=== PATIENT | male | born 1955 | race Caucasian/White ===

== ENCOUNTER 2018-06-20 17:27 | Emergency (ER) | payer MEDICARE, OTHER ==
[2018-06-20 18:37] LABS: APPEARANCE,URINE CLOUDY; BILIRUBIN,URINE NEGATIVE (NEGATIVE); CALCIUM OXALATE CRYSTALS,URINE RARE /HPF; COLOR,URINE YELLOW; GLUCOSE, URINE >=500 mg/dL (NEGATIVE); KETONES,URINE NEGATIVE (NEGATIVE); LEUKOCYTE ESTERASE,URINE NEGATIVE (NEGATIVE); NITRITE,URINE NEGATIVE (NEGATIVE); PROTEIN,URINE 30 mg/dL (NEGATIVE); URINE SPECIFIC GRAVITY 1.022; UROBILINOGEN,URINE NEGATIVE mg/dL (<2.0)
--- NOTE | 2018-06-20 20:20 | ER Document Report ---
ED General - General Chief Complaint: Urinary Problem Stated Complaint: BLOOD IN URINE Time Seen by Provider: 06/20/18 18:30 Notes: Patient is a 62-year-old male with a past medical history of hypertension who presents with gross hematuria. States this started several hours prior to arrival is been present with each episode of urination since that time. The patient denies any history of similar symptoms in the past. He denies any abdominal tenderness, flank tenderness, but does note some mild right testicular tenderness. That pain is described as a throbbing, aching, mild, constant pain worsened by touching the testicle. Nothing improves the pain. Denies any trauma to the testicle. No history of nephrolithiasis or bladder cancer. He has not seen his primary care doctor regarding today's concerns. TRAVEL OUTSIDE OF THE [place] IN LAST 30 DAYS: No - Related Data Allergies/Adverse Reactions: No Known Allergies Allergy (Unverified 06/20/18 17:30) Past Medical History - General Information source: Patient - Social History Smoking Status: Never Smoker Chew tobacco use (# tins/day): No Frequency of alcohol use: None Drug Abuse: None Lives with: Spouse/Significant other Family History: Reviewed & Not Pertinent Patient has suicidal ideation: No Patient has homicidal ideation: No - Past Medical History Cardiac Medical History: Reports: Hx Hypertension Endocrine Medical History: Reports: Hx Diabetes Mellitus Type 2 Renal/ Medical History: Denies: Hx Peritoneal Dialysis Past Surgical History: Reports: Hx Orthopedic Surgery - back, neck, L knee Review of Systems - Review of Systems Notes: Constitutional: Negative for fever. HENT: Negative for sore throat. Eyes: Negative for visual changes. Cardiovascular: Negative for chest pain. Respiratory: Negative for shortness of breath. Gastrointestinal: Negative for abdominal pain, vomiting or diarrhea. Genitourinary: Positive for gross hematuria and right testicular pain Musculoskeletal: Negative for back pain. Skin: Negative for rash. Neurological: Negative for headaches, weakness or numbness. 10 point ROS negative except as marked above and in HPI. Physical Exam - Vital signs Vitals: Temp Pulse Resp BP Pulse Ox 99.1 F 76 18 145/66 H 94 06/20/18 17:34 06/20/18 17:34 06/20/18 17:34 06/20/18 17:34 06/20/18 17:34 Interpretation: Hypertensive Notes: PHYSICAL EXAMINATION: GENERAL: Well-appearing, well-nourished and in no acute distress. HEAD: Atraumatic, normocephalic. EYES: Pupils equal round and reactive to light, extraocular movements intact, sclera anicteric, conjunctiva are normal. ENT: nares patent, oropharynx clear without exudates. Moist mucous membranes. NECK: Normal range of motion, supple without lymphadenopathy LUNGS: Breath sounds clear to auscultation bilaterally and equal. No wheezes rales or rhonchi. HEART: Regular rate and rhythm without murmurs ABDOMEN: Soft, nontender, normoactive bowel sounds. No guarding, no rebound. No masses appreciated. No CVA tenderness. : Mild right testicular tenderness to palpation. No abnormal testicular lie. Positive cremasteric reflex bilaterally. No penile lesions or drainage. EXTREMITIES: Normal range of motion, no pitting or edema. No cyanosis. NEUROLOGICAL: No focal neurological deficits. Moves all extremities spontaneously and on command. PSYCH: Normal mood, normal affect. SKIN: Warm, Dry, normal turgor, no rashes or lesions noted. Course - Re-evaluation Re-evalutation: 06/20/18 20:19 Patient presents with a new onset gross hematuria that has been ongoing for the past several hours. He denies any flank pain, abdominal pain but does note some right testicular pain on exam he has no CVA tenderness, no focal abdominal tende rness. No penile lesions, mild tenderness on palpation of the epididymis on the right but normal testicular lie, no discoloration or swelling. Patient will undergo a scrotal ultrasound given the right testicular pain as well as a CT scan of the abdomen pelvis with IV or oral contrast to evaluate for any evidence of a kidney stone, renal mass or possible bladder mass. I informed patient that these studies are normal he will require outpatient follow-up for cystoscopy. 06/20/18 21:57 CT scan does reveal small kidney stones in the bilateral kidneys, again visualizes with the patient states is a known hemangioma in the liver. Awaiting scrotal ultrasound. 06/20/18 22:41 Scrotal ultrasound does show bilateral hydroceles with findings. I have updated the patient on his imaging and laboratory results. I have advised that he follow-up with urology at his earliest ability for cystoscopy as well as evaluation of the bilateral hydroceles particularly on the right. At this time will discharge with return precautions and follow-up recommendations. Verbal discharge instructions given a the bedside and opportunity for questions given. Medication warnings reviewed. Patient is in agreement with this plan and has verbalized understanding of return precautions and the need for primary care f ollow-up in the next 24-72 hours. - Vital Signs Vital signs: Temp Pulse Resp BP Pulse Ox 97.6 F 69 16 138/70 H 100 06/20/18 22:55 06/20/18 22:55 06/20/18 22:55 06/20/18 22:55 06/20/18 22:55 - Laboratory Result Diagrams: 06/20/18 20:43 06/20/18 20:43 Laboratory results interpreted by me: 06/20/18 06/20/18 06/20/18 18:24 20:43 20:43 Hgb 13.2 L RDW 15.3 H Glucose 148 H Calcium 10.6 H Urine Protein 30 H Urine Glucose (UA) >=500 H Urine Blood LARGE H - Diagnostic Test Radiology reviewed: Reports reviewed Discharge - Discharge Clinical Impression: Gross hematuria, Bilateral hydrocele Condition: Good Disposition: HOME, SELF-CARE Additional Instructions: You need to follow-up with urology for a cystoscopy to evaluate for any possib ility of bladder cancer given your gross hematuria. Your CAT scan and ultrasound results are on your paperwork. Please return if you develop worsening testicular pain, persistent vomiting, pass out, develop a fever of greater than 100.4 F, or have any other symptoms that are worrisome to you.
[2018-06-20 20:59] LABS: ABSOLUTE BASOPHILS # (AUTO) 0.1 10^3/uL (0.0-0.2); ABSOLUTE EOSINOPHILS # (AUTO) 0.2 10^3/uL (0.0-0.6); ABSOLUTE LYMPHOCYTES (AUTO) 2.8 10^3/uL (0.5-4.7); ABSOLUTE MONOCYTES (AUTO) 0.7 10^3/uL (0.1-1.4); ABSOLUTE NEUT (AUTO) 6.1 10^3/uL (1.7-8.2); BASOPHILS % (AUTO) 1.1 % (0-2); EOSINOPHILS % (AUTO) 1.6 % (0-6); HEMATOCRIT 37.9 % (37.9-51.0); HEMOGLOBIN 13.2 g/dL (13.5-17.0); LYMPHOCYTES % (AUTO) 28.3 % (13-45); MEAN CORPUSCULAR HEMOGLOBIN 28.2 pg (27.0-33.4); MEAN CORPUSCULAR HGB CONC 34.8 g/dL (32.0-36.0); MEAN CORPUSCULAR VOLUME 81 fl (80-97); MONOCYTES % (AUTO) 6.9 % (3-13); PLATELET COUNT 158 10^3/uL (150-450); RED BLOOD COUNT 4.69 10^6/uL (4.35-5.55); RED CELL DISTRIBUTION WIDTH 15.3 % (11.5-14.0); SEGMENTED NEUTROPHILS % (AUTO) 62.1 % (42-78); TOTAL CELLS COUNTED % (AUTO) 100 %; WHITE BLOOD COUNT 9.8 10^3/uL (4.0-10.5)
--- NOTE | 2018-06-20 21:11 | RADIOLOGY REPORT (SQ) ---
CT ABDOMEN PELVIS WITHOUT IV CONTRAST HISTORY: Gross, new onset hematuria. COMPARISON: None. TECHNIQUE: CT scan of the abdomen and pelvis without IV contrast. This exam was performed according to our departmental dose-optimization program, which includes automated exposure control, adjustment of the mA and/or kV according to patient size and/or use of iterative reconstruction technique. FINDINGS: Please note that the evaluation of the solid and hollow abdominal viscera is limited without IV contrast. There is atelectasis at the left lung base. No pleural or pericardial effusions. There is a large area of hypodensity in the right hepatic lobe which measures 13.3 x 8.7 cm. Small punctate gallstones are seen. No adrenal masses are identified. There are a few bilateral nonobstructing stones in both kidneys with the largest measuring 4 mm in the right kidney. No ureteral or bladder stones are seen. The pelvic organs are unremarkable. No small bowel obstruction. The appendix is unremarkable. The abdominal aorta is normal caliber. The osseous structures are intact. IMPRESSION: 1. A few punctate nonobstructing stones in both kidneys. 2. 13 cm hypodense area in the right hepatic lobe. Recommend contrast enhanced study for complete evaluation. 3. Gallstones.
[2018-06-20 21:14] LABS: ANION GAP 6 (5-19); BLOOD UREA NITROGEN 19 mg/dL (7-20); CALCIUM 10.6 mg/dL (8.4-10.2); CARBON DIOXIDE 28 mmol/L (22-30); CHLORIDE 107 mmol/L (98-107); GLUCOSE 148 mg/dL (75-110); SODIUM 141.4 mmol/L (137-145)
[2018-06-20 21:22] LABS: CHLAM PCR NOT DETECTED (NOT DETECT); GON PCR NOT DETECTED (NOT DETECT)
--- NOTE | 2018-06-20 22:12 | RADIOLOGY REPORT (SQ) ---
US SCROTUM HISTORY: Right testicular pain, hematuria. COMPARISON: None. TECHNIQUE: Gage-scale, color Doppler, and spectral Doppler ultrasound images of the scrotum were obtained. FINDINGS: RIGHT: Normal size and echogenicity of the testis, measuring 3.8 x 2.7 x 3.4 cm. Positive color Doppler flow is present. No focal intratesticular mass is seen. The epididymis also has normal size and echogenicity, and measures 1.3 x 1.1 x 1.5 cm and contains multiple subcentimeter cysts. There is a 6 mm extratesticular calcification. LEFT: Normal size and echogenicity of the testis, measuring 3.9 x 2.3 x 4.2 cm. Positive color Doppler flow is present. No focal intratesticular mass is seen. The epididymis also has normal size and echogenicity, and measures 1.5 x 0.8 x 2.0 cm and contains a 4 mm cyst. OTHER: There are bilateral hydroceles, greater on the right. No varicoceles. No scrotal hernias. IMPRESSION: 1. No testicular torsion. 2. Bilateral hydroceles, with a complex right-sided hydrocele containing internal debris and shadowing calcifications. Findings may represent sequela of prior infection or inflammation.
[2018-06-20 23:04] VITALS: BP 138/70
== END 2018-06-20 23:04 | disposition home or self-care (01) ==
LOC: ER 17:27
DX: R31.0 Gross hematuria (principal); N43.3 Hydrocele, unspecified; N20.0 Calculus of kidney; D18.09 Hemangioma of other sites; N50.811 Right testicular pain; I10 Essential (primary) hypertension; E11.9 Type 2 diabetes mellitus without complications
CPT/HCPCS: 36415; 74176; 76870; 80048; 81001; 85025; 87491; 87591; 93976; 99284

== ENCOUNTER 2018-06-27 10:07 | Emergency (ER) | payer MEDICARE, OTHER ==
[2018-06-27] MEDS ORDERED: OXYCODONE-ACETAMINOPHEN 5-325 MG TABLET PO ONE (10:28)
[2018-06-27] MEDS ORDERED: ONDANSETRON ODT 4 MG TAB (6 TAB/ER DISP) PO PRN (10:28)
--- NOTE | 2018-06-27 10:31 | ER Document Report ---
ED Medical Screen (RME) - General Chief Complaint: Lower Abdominal Pain Stated Complaint: SIDE PAIN Time Seen by Provider: 06/27/18 10:21 Notes: RAPID MEDICAL EVALUATION DISCLOSURE I have seen this patient as part of a Rapid Medical Evaluation and, if applicable, placed any initially appropriate orders. The patient will be seen and fully evaluated, including a full history and physical exam, by a provider (in Main ED or Fast Track) when a room becomes available. 8-year-old male here with complaints of right lower quadrant abdominal pain and continued hematuria. He has had the hematuria for the past 1 week. He was seen here in the ED for the same thing and had a CT abdomen and pelvis that showed some small kidney stones in both kidneys but no ureteral stones. He has tried to make an appointment with a urologist and is now waiting for them to call him back with the date and time. This morning, he started to have the right lower quadrant abdominal pain and this is what brought him into the ED. He has not taken anything for the pain. Pain is worse with movement. Pain is improved with minimizing movement. EXAM CTAB RRR Minimal right upper greater than lower quadrant TTP TRAVEL OUTSIDE OF THE [place] IN LAST 30 DAYS: No - Related Data Allergies/Adverse Reactions: No Known Allergies Allergy (Verified 06/27/18 10:11) Past Medical History - Past Medical History Cardiac Medical History: Reports: Hx Hypertension Endocrine Medical History: Reports: Hx Diabetes Mellitus Type 2 Renal/ Medical History: Denies: Hx Peritoneal Dialysis Past Surgical History: Reports: Hx Orthopedic Surgery - back, neck, L knee Physical Exam - Vital signs Vitals: Temp Pulse Resp BP Pulse Ox 98.1 F 71 18 162/81 H 97 06/27/18 10:16 06/27/18 10:16 06/27/18 10:16 06/27/18 10:16 06/27/18 10:16 Course - Vital Signs Vital signs: Temp Pulse Resp BP Pulse Ox 98.1 F 71 18 162/81 H 97 06/27/18 10:16 06/27/18 10:16 06/27/18 10:16 06/27/18 10:16 06/27/18 10:16
[2018-06-27 11:03] LABS: ABSOLUTE EOSINOPHILS # (AUTO) 0.1 10^3/uL (0.0-0.6); ABSOLUTE LYMPHOCYTES (AUTO) 1.2 10^3/uL (0.5-4.7); ABSOLUTE MONOCYTES (AUTO) 0.5 10^3/uL (0.1-1.4); ABSOLUTE NEUT (AUTO) 7.8 10^3/uL (1.7-8.2); BASOPHILS % (AUTO) 0.3 % (0-2); EOSINOPHILS % (AUTO) 0.7 % (0-6); HEMATOCRIT 38.4 % (37.9-51.0); HEMOGLOBIN 13.2 g/dL (13.5-17.0); LYMPHOCYTES % (AUTO) 12.6 % (13-45); MEAN CORPUSCULAR HEMOGLOBIN 28.1 pg (27.0-33.4); MEAN CORPUSCULAR HGB CONC 34.2 g/dL (32.0-36.0); MEAN CORPUSCULAR VOLUME 82 fl (80-97); MONOCYTES % (AUTO) 4.8 % (3-13); PLATELET COUNT 147 10^3/uL (150-450); RED BLOOD COUNT 4.69 10^6/uL (4.35-5.55); RED CELL DISTRIBUTION WIDTH 15.8 % (11.5-14.0); SEGMENTED NEUTROPHILS % (AUTO) 81.6 % (42-78); TOTAL CELLS COUNTED % (AUTO) 100 %; WHITE BLOOD COUNT 9.5 10^3/uL (4.0-10.5)
[2018-06-27 11:21] LABS: APPEARANCE,URINE CLOUDY; BILIRUBIN,URINE NEGATIVE (NEGATIVE); CALCIUM OXALATE CRYSTALS,URINE RARE /HPF; COLOR,URINE AMBER; GLUCOSE, URINE >=500 mg/dL (NEGATIVE); KETONES,URINE NEGATIVE (NEGATIVE); LEUKOCYTE ESTERASE,URINE TRACE (NEGATIVE); NITRITE,URINE NEGATIVE (NEGATIVE); PROTEIN,URINE 100 mg/dL (NEGATIVE); URINE SPECIFIC GRAVITY 1.016; UROBILINOGEN,URINE NEGATIVE mg/dL (<2.0)
[2018-06-27 11:24] LABS: ALANINE AMINOTRANSFERASE 25 U/L (21-72); ALBUMIN 4.2 g/dL (3.5-5.0); ALKALINE PHOSPHATASE 91 U/L (38-126); ANION GAP 8 (5-19); ASPARTATE AMINO TRANSFERASE 29 U/L (17-59); BILIRUBIN,DIRECT 0.3 mg/dL (0.0-0.4); BILIRUBIN,TOTAL 0.6 mg/dL (0.2-1.3); BLOOD UREA NITROGEN 18 mg/dL (7-20); CALCIUM 10.8 mg/dL (8.4-10.2); CARBON DIOXIDE 29 mmol/L (22-30); CHLORIDE 105 mmol/L (98-107); GLUCOSE 194 mg/dL (75-110); LIPASE 148.4 U/L (23-300); POTASSIUM 4.4 mmol/L (3.6-5.0); SODIUM 141.6 mmol/L (137-145); TOTAL PROTEIN 6.8 g/dL (6.3-8.2)
--- NOTE | 2018-06-27 13:02 | ER Document Report ---
ED General - General Chief Complaint: Lower Abdominal Pain Stated Complaint: SIDE PAIN Time Seen by Provider: 06/27/18 10:21 TRAVEL OUTSIDE OF THE [place] IN LAST 30 DAYS: No - HPI Patient complains to provider of: Hematuria Onset: Other - Right-sided flank pain hematuria has a history of a previously diagnosed nephrolithiasis 1 week prior after being evaluated for hematuria. He notes that the urine that has been having his continue to have blood as well as pain since that time. Nothing is seem to make the pain any better intermittently it does get worse and he has not had any change as far as temperature. Denies any emesis of abdominal pain constipation chills or other symptoms. Has not been able to get in with a urologist yet. - Related Data Allergies/Adverse Reactions: No Known Allergies Allergy (Verified 06/27/18 10:11) Past Medical History - General Information source: Patient - Social History Smoking Status: Never Smoker Chew tobacco use (# tins/day): No Frequency of alcohol use: None Drug Abuse: None Family History: Reviewed & Not Pertinent Patient has suicidal ideation: No Patient has homicidal ideation: No - Past Medical History Cardiac Medical History: Reports: Hx Hypertension Endocrine Medical History: Reports: Hx Diabetes Mellitus Type 2 Renal/ Medical History: Denies: Hx Peritoneal Dialysis Past Surgical History: Reports: Hx Orthopedic Surgery - back, neck, L knee Review of Systems - Review of Systems -: Yes All other systems reviewed and negative Physical Exam - Vital signs Vitals: Temp Pulse Resp BP Pulse Ox 98.1 F 71 18 162/81 H 97 06/27/18 10:16 06/27/18 10:16 06/27/18 10:16 06/27/18 10:16 06/27/18 10:16 Interpretation: Normal - General General appearance: Appears well, Alert - HEENT Head: Normocephalic, Atraumatic Eyes: Normal Pupils: PERRL - Respiratory Respiratory status: No respiratory distress Chest status: Nontender Breath sounds: Normal Chest palpation: Normal - Cardiovascular Rhythm: Regular Heart sounds: Normal auscultation Murmur: No - Abdominal Inspection: Normal Distension: No distension Bowel sounds: Normal Tenderness: Nontender Organomegaly: No organomegaly - Back Back: Normal, Nontender - Extremities General upper extremity: Normal inspection, Nontender, Normal color, Normal ROM, Normal temperature General lower extremity: Normal inspection, Nontender, Normal color, Normal ROM, Normal temperature, Normal weight bearing. No: Sophia's sign - Neurological Neuro grossly intact: Yes Cognition: Normal Orientation: AAOx4 [place] Coma Scale Eye Opening: Spontaneous [place] Coma Scale Verbal: Oriented [place] Coma Scale Motor: Obeys Commands [place] Coma Scale Total: 15 Speech: Normal Motor strength normal: LUE, RUE, LLE, RLE Sensory: Normal - Psychological Associated symptoms: Normal affect, Normal mood - Skin Skin Temperature: Warm Skin Moisture: Dry Skin Color: Normal Course - Re-evaluation Re-evalutation: 06/27/18 18:39 Exceptionally well-appearing 8-year-old man who presents for right-sided flank pain and hematuria in the setting of previously demonstrated nephrolithiasis. Current plan is this patient undergo discharge as he is got hematuria without obvious infection normal renal function and otherwise well-appearing. His abdominal examination is benign in the emergency department. He and his family are comfortable with this plan at this time we will plan for him to undergo discharge with return precautions and encouraged follow-up with urologist as previously instructed. - Vital Signs Vital signs: Temp Pulse Resp BP Pulse Ox 98.1 F 71 18 162/81 H 97 06/27/18 10:16 06/27/18 10:16 06/27/18 10:16 06/27/18 10:16 06/27/18 10:16 - Laboratory Result Diagrams: 06/27/18 10:45 06/27/18 10:45 Laboratory results interpreted by me: 06/27/18 06/27/18 06/27/18 10:45 10:45 10:45 Hgb 13.2 L RDW 15.8 H Plt Count 147 L Seg Neutrophils % 81.6 H Lymphocytes % 12.6 L Glucose 194 H Calcium 10.8 H Urine Protein 100 H Urine Glucose (UA) >=500 H Urine Blood LARGE H Ur Leukocyte Esterase TRACE H Discharge - Discharge Clinical Impression: Nephrolithiasis, Flank pain Condition: Good Disposition: HOME, SELF-CARE Instructions: Oral Narcotic Medication ([facility]), Antinausea Medication ([facility]) Additional Instructions: You were seen today in the emergency department for your flank pain. You had evaluation including a physical exam. It appears that your pain is likely related to a kidney stone. You need to schedule an appointment with your urologist in the coming week. You been given medication to help deal with pain. Continue to take Motrin and Tylenol. Return for worsening fevers, higher than 101 degrees. Return for worsening pain that will not improve despite taking medications. Otherwise follow-up with the urologist at your early convenience. Prescriptions: Hydrocodone/Acetaminophen [Colo 5-325 Tablet] 1 each PO Q8 PRN 3 Days #15 tablet PRN Reason: Tamsulosin HCl [Flomax 0.4 mg Cap.sr] 0.4 mg PO DAILY #7 cap.sr.24h Forms: Elevated Blood Pressure
[2018-06-27 13:30] VITALS: BP 140/75
== END 2018-06-27 13:30 | disposition home or self-care (01) ==
LOC: ER 10:07
DX: N20.0 Calculus of kidney (principal); R10.30 Lower abdominal pain, unspecified; R31.9 Hematuria, unspecified; I10 Essential (primary) hypertension; E11.9 Type 2 diabetes mellitus without complications
CPT/HCPCS: 99284; 36415; 83690; 85025; 80053; 81001; A9270

== ENCOUNTER 2019-02-09 18:35 | Observation (INO) | payer MEDICARE, OTHER ==
[2019-02-09] MEDS ORDERED: ASPIRIN 81 MG TABLET, CHEWABLE PO ONE (19:14)
--- NOTE | 2019-02-09 19:16 | ER Document Report ---
ED Medical Screen (RME) - General Chief Complaint: Chest Pain Stated Complaint: CHEST PAIN Time Seen by Provider: 02/09/19 19:13 Mode of Arrival: Ambulatory Information source: Patient Notes: 63-year-old male presented to ED for complaint of chest tightness squeezing and intermittent substernal pain with shortness of breath since morning time. He is alert oriented respirations regular and unlabored speaking in full sentences walks with even steady gait. He does have a history of high blood pressure cholesterol sleep apnea and diabetes type 2. He is a retired does not smoke drink or do any drugs. I have greeted and performed a rapid initial assessment of this patient. A comprehensive ED assessment and evaluation of the patient, analysis of test results and completion of medical decision making process will be conducted by an additional ED providers. TRAVEL OUTSIDE OF THE [place] IN LAST 30 DAYS: No - Related Data Allergies/Adverse Reactions: No Known Allergies Allergy (Verified 02/09/19 18:36) Past Medical History - Past Medical History Cardiac Medical History: Reports: Hx Hypertension Endocrine Medical History: Reports: Hx Diabetes Mellitus Type 2 Renal/ Medical History: Denies: Hx Peritoneal Dialysis Past Surgical History: Reports: Hx Orthopedic Surgery - back, neck, L knee Physical Exam - Vital signs Vitals: Temp Pulse Resp BP Pulse Ox 98.0 F 73 16 149/74 H 95 02/09/19 18:54 02/09/19 18:54 02/09/19 18:54 02/09/19 18:54 02/09/19 18:54 Course - Vital Signs Vital signs: Temp Pulse Resp BP Pulse Ox 98.0 F 73 16 149/74 H 95 02/09/19 18:54 02/09/19 18:54 02/09/19 18:54 02/09/19 18:54 02/09/19 18:54
--- NOTE | 2019-02-09 19:34 | RADIOLOGY REPORT (SQ) ---
EXAM DESCRIPTION: CHEST 2 VIEWS COMPLETED DATE/TIME: 02/09/2019 7:24 pm REASON FOR STUDY: chest pain COMPARISON: None. EXAM PARAMETERS: NUMBER OF VIEWS: two views TECHNIQUE: Digital Frontal and Lateral radiographic views of the chest acquired. RADIATION DOSE: NA LIMITATIONS: none FINDINGS: LUNGS AND PLEURA: No pneumothorax. Minimal left basilar subsegmental atelectasis. No con solidation or pleural effusion. MEDIASTINUM AND HILAR STRUCTURES: No masses or contour abnormalities. HEART AND VASCULAR STRUCTURES: Heart normal size. No evidence for failure. BONES: No acute findings. HARDWARE: None in the chest. OTHER: No other significant finding. IMPRESSION: Minimal left basilar subsegmental atelectasis. No consolidation or pleural effusion. TECHNICAL DOCUMENTATION: JOB ID: [id number] 2010 [employer]- All Rights Reserved Reading location - IP/workstation name: [email or web address]
[2019-02-09 19:57] LABS: ABSOLUTE BASOPHILS # (AUTO) 0.1 10^3/uL (0.0-0.2); ABSOLUTE EOSINOPHILS # (AUTO) 0.2 10^3/uL (0.0-0.6); ABSOLUTE LYMPHOCYTES (AUTO) 2.8 10^3/uL (0.5-4.7); ABSOLUTE MONOCYTES (AUTO) 0.7 10^3/uL (0.1-1.4); ABSOLUTE NEUT (AUTO) 5.3 10^3/uL (1.7-8.2); BASOPHILS % (AUTO) 0.6 % (0-2); HEMATOCRIT 37.8 % (37.9-51.0); HEMOGLOBIN 12.6 g/dL (13.5-17.0); LYMPHOCYTES % (AUTO) 31.1 % (13-45); MEAN CORPUSCULAR HEMOGLOBIN 27.2 pg (27.0-33.4); MEAN CORPUSCULAR HGB CONC 33.4 g/dL (32.0-36.0); MEAN CORPUSCULAR VOLUME 82 fl (80-97); MONOCYTES % (AUTO) 7.5 % (3-13); PLATELET COUNT 176 10^3/uL (150-450); RED BLOOD COUNT 4.63 10^6/uL (4.35-5.55); RED CELL DISTRIBUTION WIDTH 15.4 % (11.5-14.0); SEGMENTED NEUTROPHILS % (AUTO) 58.8 % (42-78); TOTAL CELLS COUNTED % (AUTO) 100 %
[2019-02-09 20:11] LABS: ALBUMIN 4.4 g/dL (3.5-5.0); ALKALINE PHOSPHATASE 84 U/L (38-126); ANION GAP 8 (5-19); ASPARTATE AMINO TRANSFERASE 23 U/L (17-59); BILIRUBIN,DIRECT 0.3 mg/dL (0.0-0.4); BILIRUBIN,TOTAL 0.6 mg/dL (0.2-1.3); BLOOD UREA NITROGEN 20 mg/dL (7-20); CALCIUM 10.7 mg/dL (8.4-10.2); CARBON DIOXIDE 34 mmol/L (22-30); CHLORIDE 99 mmol/L (98-107); CREATINE KINASE 111 U/L (55-170); GLUCOSE 234 mg/dL (75-110); POTASSIUM 3.9 mmol/L (3.6-5.0); TOTAL PROTEIN 6.9 g/dL (6.3-8.2)
[2019-02-09 20:17] LABS: APPEARANCE,URINE CLEAR; BILIRUBIN,URINE NEGATIVE (NEGATIVE); CALCIUM OXALATE CRYSTALS,URINE RARE /HPF; COLOR,URINE YELLOW; GLUCOSE, URINE >=500 mg/dL (NEGATIVE); KETONES,URINE NEGATIVE (NEGATIVE); LEUKOCYTE ESTERASE,URINE NEGATIVE (NEGATIVE); NITRITE,URINE NEGATIVE (NEGATIVE); PROTEIN,URINE NEGATIVE (NEGATIVE); URINE SPECIFIC GRAVITY 1.021
[2019-02-09 20:22] LABS: CREATINE KINASE MB 0.87 ng/mL (<4.55)
[2019-02-09 20:26] LABS: TROPONIN I < 0.012 ng/mL
--- NOTE | 2019-02-09 20:36 | EKG REPORT ---
SEVERITY:- ABNORMAL ECG - SINUS RHYTHM SUPRAVENTRICULAR BIGEMINY : Confirmed by: Luzmaria Luna MD 09-Feb-2019 20:35:34
[2019-02-09] MEDS ORDERED: NITROGLYCERIN 5 MG (0.2 MG/HR) PATCH.TD24 TD ONE (20:53)
--- NOTE | 2019-02-09 20:53 | ER Document Report ---
ED Cardiac - General Chief Complaint: Chest Pain Stated Complaint: CHEST PAIN Time Seen by Provider: 02/09/19 19:13 Mode of Arrival: Ambulatory Notes: Patient is a 63-year-old male that comes to the emergency department for chief complaint of chest pain. Pain is in the center of his chest, he started noticing this during the test puller, it has been intermittent throughout today. He denies feeling the pain now, states he feels a vague tightness in his chest but nothing more. He denies nausea vomiting, cough, fever chills, denies any exacerbating or alleviating factors. He denies having pain like this before . He states he had a negative stress test 20 years ago. Past medical history includes type 2 diabetes, hypertension, hyperlipidemia, DYANA, and former smoker. TRAVEL OUTSIDE OF THE [place] IN LAST 30 DAYS: No - Related Data Allergies/Adverse Reactions: No Known Allergies Allergy (Verified 02/09/19 18:36) Past Medical History - General Information source: Patient - Social History Smoking Status: Never Smoker Frequency of alcohol use: None Drug Abuse: None Lives with: Family Family History: Reviewed & Not Pertinent Patient has suicidal ideation: No Patient has homicidal ideation: No - Past Medical History Cardiac Medical History: Reports: Hx Hypertension Endocrine Medical History: Reports: Hx Diabetes Mellitus Type 2 Renal/ Medical History: Denies: Hx Peritoneal Dialysis Past Surgical History: Reports: Hx Orthopedic Surgery - back, neck, L knee - Immunizations Immunizations up to date: Yes Hx Diphtheria, Pertussis, Tetanus Vaccination: Yes Review of Systems - Review of Systems Constitutional: No symptoms reported EENT: No symptoms reported Cardiovascular: See HPI Respiratory: No symptoms reported Gastrointestinal: No symptoms reported Genitourinary: No symptoms reported Male Genitourinary: No symptoms reported Musculoskeletal: No symptoms reported Skin: No symptoms reported Hematologic/Lymphatic: No symptoms reported Neurological/Psychological: No symptoms reported Physical Exam - Vital signs Vitals: Temp Pulse Resp BP Pulse Ox 98.0 F 73 16 149/74 H 95 02/09/19 18:54 02/09/19 18:54 02/09/19 18:54 02/09/19 18:54 02/09/19 18:54 - Notes Notes: GENERAL: Alert, interacts well. No acute distress. HEAD: Normocephalic, atraumatic. EYES: Pupils equal, round, and reactive to light. Extraocular movements intact. ENT: Oral mucosa moist, tongue midline. Oropharynx unremarkable. Airway patent. LUNGS: Clear to auscultation bilaterally, no wheezes, rales, or rhonchi. No respiratory distress. HEART: Regular rate and rhythm. No murmur ABDOMEN: Soft, non-tender. Non-distended. EXTREMITIES: Moves all 4 extremities spontaneously. No edema, normal radial and dorsalis pedis pulses bilaterally. No cyanosis. BACK: no cervical, thoracic, lumbar midline tenderness. No saddle anesthesia, normal distal neurovascular exam. Moves all extremities in full range of motion. NEUROLOGICAL: Alert and oriented x3. Normal speech. Cranial nerves II through XII grossly intact. PSYCH: Normal affect, normal mood. SKIN: Warm, dry, normal turgor. No rashes or lesions noted. Course - Re-evaluation Re-evalutation: Patient stating the symptoms from earlier have resolved except for a vague tightness in his chest. He was given nitroglycerin. EKG shows bigeminy but does not show ischemic changes. Chest x-ray unremarkable. CBC, chemistry nonspecific, troponin is not elevated, will be trended. Discussed with patient in detail. Discussed admission versus follow- up with the [place] and cardiology outpatient. Patient would prefer to be admitted, he does have a history of obesity, hypertension, hyperlipidemia, type 2 diabetes, he is 63 years old, and he has not had a stress test in 20 years. Will discuss with hospitalist for admission. Discussed with Dr. Machado, hospitalist, patient accepted for admission to telemetry observation. - Vital Signs Vital signs: Temp Pulse Resp BP Pulse Ox 98.0 F 73 16 146/86 H 95 02/09/19 18:54 02/09/19 18:54 02/10/19 04:00 02/10/19 02:01 02/10/19 04:00 - Laboratory Result Diagrams: 02/09/19 19:10 02/09/19 19:10 Laboratory results interpreted by me: 02/09/19 02/09/19 02/09/19 19:10 19:10 19:10 Hgb 12.6 L Hct 37.8 L RDW 15.4 H Carbon Dioxide 34 H Glucose 234 H Calcium 10.7 H Urine Glucose (UA) >=500 H Urine Urobilinogen 2.0 H - EKG Interpretation by Me Additional EKG results interpreted by me: 02/09/19 20:44 EKG shows bigeminy at a rate of 72, QTC of 438, ID interval of 180. Flattened T waves inferiorly but no T wave inversions or ST segment changes in consecutive leads. Discharge - Discharge Clinical Impression: Chest pain Qualifiers: Chest pain type: unspecified Qualified Code(s): R07.9 - Chest pain, unspecified Condition: Stable Disposition: ADMITTED OBSERVATION Admitting Provider: Jeannette (Hospitalist) Unit Admitted: Telemetry
[2019-02-10] MEDS ORDERED: LEVALBUTEROL HCL NEB 0.63 MG/3 ML AMPUL NEB PRN (02:22)
[2019-02-10] MEDS ORDERED: PROMETHAZINE HCL INJ 25 MG/1 ML VIAL IV PRN (02:22)
[2019-02-10] MEDS ORDERED: MAGNESIUM HYDROXIDE SUSP 30 ML UDCUP PO PRN (02:22)
[2019-02-10] MEDS ORDERED: INSULIN REG, HUMAN 100 UNIT/ML 3 ML VIAL (PYX) SUBCUT PRN (02:29)
[2019-02-10] MEDS ORDERED: MORPHINE SULFATE 10 MG/ML INJ IV PRN ×4 (02:29→02:40)
[2019-02-10] MEDS ORDERED: ACETAMINOPHEN 325 MG TABLET PO PRN (02:29)
[2019-02-10] MEDS ORDERED: DEXTROSE 50%-WATER 25 GM/50 ML DISP.SYRIN IV PRN ×2 (02:30)
[2019-02-10] MEDS ORDERED: DEXTROSE 40% GEL 15 GM TUBE PO PRN ×2 (02:30)
[2019-02-10] MEDS ORDERED: GLUCAGON,HUMAN RECOMB 1 MG INJ IM PRN (02:30)
--- NOTE | 2019-02-10 04:53 | PDOC H&P ---
History of Present Illness Admission Date/PCP: 02/10/19 02:21 [place] Patient complains of: Chest pain History of Present Illness: MONISHA COREAS is a 63 year old male who presented to the emergency room with a 1 day history of chest pain. 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 The pain is described as a moderately intense vague tightness/squeezing sensation in the substernal anterior chest without radiation. The pain would last for a few minutes and resolve spontaneously. He denies other associated or accompanying signs and symptoms. He denies prior similar episodes and has not identified any aggravating or ameliorating factors for his chest pain. In the emergency room he was found to have an EKG and cardiac enzymes which showed no evidence of acute myocardial ischemia or injury. He was subsequently admitted to the hospital for further evaluation on an outpatient observation status. Past Medical History Cardiac Medical History: Reports: Hyperlipidema, Hypertension Denies: Coronary Artery Disease, Myocardial Infarction, Peripheral Vascular Disease Pulmonary Medical History: Reports: Sleep Apnea Denies: Asthma, Chronic Obstructive Pulmonary Disease (COPD) EENT Medical History: Denies: Cataracts, Ears - Hearing aids Neurological Medical History: Denies: Hemorrhagic CVA, Ischemic CVA, Multiple Sclerosis, Seizures Endocrine Medical History: Reports: Diabetes Mellitus Type 2, Obesity Denies: Diabetes Mellitus Type 1, Hyperthyroidism, Hypothyroidism Renal/ Medical History: Reports: Other - Benign prostatic hypertrophy Denies: Chronic Kidney Disease, Nephrolithiasis Malignancy Medical History: Reports: None GI Medical History: Denies: Cirrhosis, Crohn's Disease, Gastroesophageal Reflux Disease, Hepatitis, Peptic Ulcer Disease, Ulcerative Colitis Musculoskeltal Medical History: Denies: Arthritis, Gout Skin Medical History: Denies: Eczema, Psoriasis Psychiatric Medical History: Reports: Tobacco Dependency Denies: Alcohol Dependency, Substance Abuse Traumatic Medical History: Reports: None Hematology: Denies: Anemia, Bleeding Tendencies Infectious Medical History: Reports: None Past Surgical History Past Surgical History: Reports: Orthopedic Surgery - back, neck, L knee Social History Information Source: Patient Lives with: Spouse/Significant other Smoking Status: Former Smoker Frequency of Alcohol Use: None Hx Recreational Drug Use: No Drugs: None Hx Prescription Drug Abuse: No - Advance Directive Resuscitation Status: Full Code Surrogate healthcare decision maker:: Aliza Persaudkins Family History Family History: CAD, DM, Hypertension, Malignancy Parental Family History Reviewed: Yes Children Family History Reviewed: No Sibling(s) Family History Reviewed.: Yes Medication/Allergy Home Medications: Hydrocodone/Acetaminophen [[place] 5-325 Tablet] 1 each PO Q8 PRN 3 Days #15 tablet 06/27/18 Tamsulosin HCl [Flomax 0.4 mg Cap.sr] 0.4 mg PO DAILY #7 cap.sr.24h 06/27/18 Allergies/Adverse Reactions: No Known Allergies Allergy (Verified 02/09/19 18:36) Review of Systems Constitutional: ABSENT: chills, fever(s) Eyes: ABSENT: visual disturbances, other - Ocular pain Ears: ABSENT: hearing changes, other - Ear pain Nose, Mouth, and Throat: ABSENT: mouth pain, sore throat Cardiovascular: PRESENT: as per HPI, chest pain. ABSENT: dyspnea on exertion, edema, orthropnea, palpitations Respiratory: ABSENT: dyspnea, hemoptysis Gastrointestinal: ABSENT: abdominal pain, constipation, diarrhea, nausea, vomiting Genitourinary: ABSENT: dysuria, hematuria Musculoskeletal: ABSENT: back pain, joint swelling, muscle weakness Integumentary: ABSENT: pruritus, rash Neurological: ABSENT: confusion, convulsions, focal weakness, memory loss, syncope Psychiatric: ABSENT: anxiety, depression Endocrine: ABSENT: cold intolerance, heat intolerance Hematologic/Lymphatic: ABSENT: easy bleeding, easy bruising Allergic/Immunologic: ABSENT: seasonal rhinorrhea Physical Exam Vital Signs: Temp Pulse Resp BP Pulse Ox 98.0 F 73 16 146/86 H 94 02/09/19 18:54 02/09/19 18:54 02/10/19 02:01 02/10/19 02:01 02/10/19 02:01 Intake & Output 02/08/19 02/09/19 02/10/19 23:59 23:59 23:59 Weight 141.9 kg General appearance: PRESENT: no acute distress, cooperative, obese Head exam: PRESENT: atraumatic, normocephalic Eye exam: PRESENT: conjunctiva pink. ABSENT: conjunctival injection, scleral icterus Ear exam: PRESENT: normal external ear exam. ABSENT: bleeding, drainage Mouth exam: PRESENT: dry mucosa, neck supple Neck exam: ABSENT: JVD, thyromegaly, tracheal deviation Respiratory exam: PRESENT: clear to auscultation roxie, symmetrical, unlabored Cardiovascular exam: PRESENT: RRR. ABSENT: clicks, gallop, rubs Pulses: PRESENT: normal radial pulses, normal dorsalis pedis pul Vascular exam: PRESENT: normal capillary refill. ABSENT: pallor GI/Abdominal exam: PRESENT: normal bowel sounds, soft Rectal exam: PRESENT: deferred Extremities exam: ABSENT: joint swelling, pedal edema Musculoskeletal exam: PRESENT: full ROM, normal inspection Neurological exam: PRESENT: alert, oriented to person, oriented to place, oriented to time, oriented to situation, CN II-XII grossly intact. ABSENT: motor sensory deficit Psychiatric exam: PRESENT: appropriate affect, normal mood Skin exam: PRESENT: dry, intact, warm. ABSENT: jaundice, rash, urticaria Results Laboratory Results: 02/09/19 19:10 02/09/19 19:10 02/09/19 02/09/19 02/09/19 19:10 19:10 19:10 WBC 9.0 RBC 4.63 Hgb 12.6 L Hct 37.8 L MCV 82 MCH 27.2 MCHC 33.4 RDW 15.4 H Plt Count 176 Seg Neutrophils % 58.8 Sodium 141.0 Potassium 3.9 Chloride 99 Carbon Dioxide 34 H Anion Gap 8 BUN 20 Creatinine 1.08 Est GFR ( Amer) > 60 Glucose 234 H Calcium 10.7 H Total Bilirubin 0.6 AST 23 Alkaline Phosphatase 84 Total Protein 6.9 Albumin 4.4 Lipase 116.7 Urine Color YELLOW Urine Appearance CLEAR Urine pH 6.0 Ur Specific [place] 1.021 Urine Protein NEGATIVE Urine Glucose (UA) >=500 H Urine Ketones NEGATIVE Urine Blood NEGATIVE Urine Nitrite NEGATIVE Ur Leukocyte Esterase NEGATIVE Urine WBC (Auto) 2 Urine RBC (Auto) 1 02/09/19 02/09/19 02/09/19 19:10 19:10 23:30 Creatine Kinase 111 CK-MB (CK-2) 0.87 Troponin I < 0.012 < 0.012 Impressions: Chest X-Ray 02/09/19 19:13 IMPRESSION: Minimal left basilar subsegmental atelectasis. No consolidation or pleural effusion. Assessment and Plan - Diagnosis (1) Chest pain Qualifiers: Chest pain type: unspecified Qualified Code(s): R07.9 - Chest pain, unspecified Is this a current diagnosis for this admission?: Yes Plan: Patient will use morphine sulfate 2 to 4 mg IV every 2 hours on a as needed basis as needed for control of his chest pain. Serial cardiac enzymes will be obtained and a Cardiolite stress test will be performed later this morning. Further evaluation/treatment will be determined based on those results. (2) Sleep apnea in adult Is this a current diagnosis for this admission?: Yes Plan: Patient will be treated with nocturnal CPAP and may utilize his own CPAP machine or will be provided a hospital unit. (3) HTN (hypertension) Qualifiers: Hypertension type: essential hypertension Qualified Code(s): I10 - Essential (primary) hypertension Is this a current diagnosis for this admission?: Yes Plan: Patient will be continued on his usual antihypertensive regimen. Patient's blood pressure was monitored closely throughout his hospital course. Will be treated with a cardiac diet. (4) HLD (hyperlipidemia) Qualifiers: Hyperlipidemia type: unspecified Qualified Code(s): E78.5 - Hyperlipidemia, unspecified Is this a current diagnosis for this admission?: Yes Plan: Patient be continued on his usual lipid therapy. A lipid profile will be obtained to assess efficacy of current therapy. Patient will be continued on a cardiac diet. (5) Diabetes mellitus type 2 in obese Is this a current diagnosis for this admission?: Yes Plan: Patient will be treated with a diabetic diet and continued on his usual diabetic regimen. Hemoglobin A1c will be obtained to evaluate his current therapeutic regimen for efficacy. Before meals and at bedtime Accu-Cheks will be performed and hyperglycemia will be treated with sliding scale insulin, hypoglycemia will be addressed with a hypoglycemic protocol. - Time Time Spent with patient: 25-34 minutes Medications reviewed and adjusted accordingly: Yes Anticipated discharge: Home - Inpatient Certification Based on my medical assessment, after consideration of the patient's comorbidities, presenting symptoms, or acuity I expect that the services needed warrant INPATIENT care.: Yes I certify that my determination is in accordance with my understanding of Medicare's requirements for reasonable and necessary INPATIENT services [42 CFR 412.3e].: Yes Medical Necessity: Significant Comorbidiites Make Outpatient Treatment Too Risky, Need Close Monitoring Due to Risk of Patient Decompensation, Need For Continuous Telemetry Monitoring, Risk of Complication if Not Cared For in [facility]
[2019-02-10] MEDS: HEPARIN SOD (PORCINE) 5,000 UNIT/ML 1 ML VIAL SUBCUT SCH ×2 (05:16→13:51)
[2019-02-10 06:51] LABS: CHOLESTEROL 123.09 mg/dL (0-200); TRIGLYCERIDES 168 mg/dL (<150)
[2019-02-10 07:02] LABS: DIRECT LDL 68 mg/dL (<100)
[2019-02-10 07:04] LABS: CREATINE KINASE MB 0.93 ng/mL (<4.55)
[2019-02-10 07:05] LABS: TROPONIN I < 0.012 ng/mL
[2019-02-10 07:06] LABS: VLDL CHOLESTEROL 33.6 mg/dL (10-31)
[2019-02-10] MEDS: INSULIN REG, HUMAN 100 UNIT/ML 3 ML VIAL (PYX) SUBCUT SCH ×3 (07:30→16:42)
[2019-02-10] MEDS ORDERED: FAMOTIDINE 20 MG TABLET PO SCH (10:00)
[2019-02-10] MEDS ORDERED: DOCUSATE SODIUM 100 MG CAPSULE PO SCH (10:00)
--- NOTE | 2019-02-10 10:08 | Progress Note ---
Provider Note Provider Note: [birth year][id number]-pfuc-old male with multiple medical problems including sleep apnea, hypertension, diabetes mellitus, sleep apnea on CPAP admitted for chest pains is waiting for the stress test today. Patient is chest pain-free. Blood pressure is 134/78. Pulse rate 69. Pulse ox is 95%. No acute events since the admission. Patient is comfortable in the chair communicating well. no complaint or no concerns expressed by the patient.
[2019-02-10 10:27] VITALS: BP 133/69
[2019-02-10 13:02] LABS: CREATINE KINASE MB 1.07 ng/mL (<4.55)
[2019-02-10 13:08] LABS: TROPONIN I < 0.012 ng/mL
[2019-02-10] MEDS ORDERED: REGADENOSON INJ 0.4 MG/5 ML DISP.SYRIN IV ONE (13:40)
--- NOTE | 2019-02-10 14:49 | PDOC DISCHARGE SUMMARY ---
General - Admit/Disc Date/PCP Admission Date/Primary Care Provider: 02/10/19 02:21 Discharge Date: 02/10/19 - Discharge Diagnosis (1) Chest pain Is this a current diagnosis for this admission?: Yes Summary: Patient will use morphine sulfate 2 to 4 mg IV every 2 hours on a as needed basis as needed for control of his chest pain. Serial cardiac enzymes will be obtained and a Cardiolite stress test will be performed later this morning. Further evaluation/treatment will be determined based on those results. 02/10/[id number]-vadz-old male came in with complaints of chest pain he went for the stress test today and which was came back negative. (2) Sleep apnea in adult Is this a current diagnosis for this admission?: Yes Summary: Patient will be treated with nocturnal CPAP and may utilize his own CPAP machine or will be provided a hospital unit. (3) HTN (hypertension) Is this a current diagnosis for this admission?: Yes Summary: Patient will be continued on his usual antihypertensive regimen. Patient's blood pressure was monitored closely throughout his hospital course. Will be treated with a cardiac diet. Blood pressure today is 134/78 stable. Patient is advised to continue the home medications upon discharge. (4) HLD (hyperlipidemia) Is this a current diagnosis for this admission?: Yes Summary: Patient be continued on his usual lipid therapy. A lipid profile will be obtained to assess efficacy of current therapy. Patient will be continued on a cardiac diet. (5) Diabetes mellitus type 2 in obese Is this a current diagnosis for this admission?: Yes Summary: Patient will be treated with a diabetic diet and continued on his usual diabetic regimen. Hemoglobin A1c will be obtained to evaluate his current therapeutic regimen for efficacy. Before meals and at bedtime Accu-Cheks will be performed and hyperglycemia will be treated with sliding scale insulin, hypoglycemia will be addressed with a hypoglycemic protocol. - Additional Information Resuscitation Status: Full Code Home Medications: Hydrocodone/Acetaminophen [[place] 5-325 Tablet] 1 each PO Q8 PRN 3 Days #15 tablet 06/27/18 Tamsulosin HCl [Flomax 0.4 mg Cap.sr] 0.4 mg PO DAILY #7 cap.sr.24h 06/27/18 History of Present Illness History of Present Illness: MONISHA COREAS is a 63 year old male 63 year old male who presented to the emergency room with a 1 day history of chest pain. 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 The pain is described as a moderately intense vague tightness/squeezing sensation in the boles bsternal anterior chest without radiation. The pain would last for a few minutes and resolve spontaneously. He denies other associated or accompanying signs and symptoms. He denies prior similar episodes and has not identified any aggravating or ameliorating factors for his chest pain. In the emergency room he was found to have an EKG and cardiac enzymes which showed no evidence of acute myocardial ischemia or injury. He was subsequently admitted to the hospital for further evaluation on an outpatient observation status. Hospital Course Hospital Course: 63-year-old male admitted for chest pain went for the stress test today stress test came back negative. Physical Exam Vital Signs: Temp Pulse Resp BP Pulse Ox 97.6 F 65 20 133/69 H 98 02/10/19 10:00 02/10/19 10:00 02/10/19 10:00 02/10/19 10:00 02/10/19 10:00 Intake & Output 02/09/19 02/10/19 02/11/19 06:59 06:59 06:59 Intake Total 0 Output Total 0 Balance 0 Weight 127.1 kg General appearance: PRESENT: no acute distress Head exam: PRESENT: atraumatic Eye exam: PRESENT: PERRLA Mouth exam: PRESENT: dry mucosa Teeth exam: PRESENT: poor dentation Neck exam: ABSENT: carotid bruit, JVD, lymphadenopathy, thyromegaly Respiratory exam: PRESENT: accessory muscle use Cardiovascular exam: PRESENT: RRR. ABSENT: diastolic murmur, rubs, systolic murmur GI/Abdominal exam: PRESENT: normal bowel sounds, soft. ABSENT: distended, guarding, mass, organolmegaly, rebound, tenderness Rectal exam: PRESENT: deferred Extremities exam: PRESENT: full ROM. ABSENT: calf tenderness, clubbing, pedal edema Neurological exam: PRESENT: alert, awake, oriented to person, oriented to place, oriented to time, oriented to situation, CN II-XII grossly intact. ABSENT: motor sensory deficit Psychiatric exam: PRESENT: appropriate affect, normal mood. ABSENT: homicidal ideation, suicidal ideation Results Laboratory Results: 02/09/19 19:10 02/09/19 19:10 08/02/09/19 02/09/19 19:10 19:10 19:10 WBC 9.0 RBC 4.63 Hgb 12.6 L Hct 37.8 L MCV 82 MCH 27.2 MCHC 33.4 RDW 15.4 H Plt Count 176 Seg Neutrophils % 58.8 Sodium 141.0 Potassium 3.9 Chloride 99 Carbon Dioxide 34 H Anion Gap 8 BUN 20 Creatinine 1.08 Est GFR ( Amer) > 60 Glucose 234 H Calcium 10.7 H Total Bilirubin 0.6 AST 23 Alkaline Phosphatase 84 Total Protein 6.9 Albumin 4.4 Triglycerides Cholesterol LDL Cholesterol Direct VLDL Cholesterol HDL Cholesterol Lipase 116.7 Free T3 pg/mL Urine Color YELLOW Urine Appearance CLEAR Urine pH 6.0 Ur Specific [place] 1.021 Urine Protein NEGATIVE Urine Glucose (UA) >=500 H Urine Ketones NEGATIVE Urine Blood NEGATIVE Urine Nitrite NEGATIVE Ur Leukocyte Esterase NEGATIVE Urine WBC (Auto) 2 Urine RBC (Auto) 1 02/09/19 02/10/19 19:10 05:49 WBC RBC Hgb Hct MCV MCH MCHC RDW Plt Count Seg Neutrophils % Sodium Potassium Chloride Carbon Dioxide Anion Gap BUN Creatinine Est GFR ( Amer) Glucose Calcium Total Bilirubin AST Alkaline Phosphatase Total Protein Albumin Triglycerides 168 H Cholesterol 123.09 LDL Cholesterol Direct 68 VLDL Cholesterol 33.6 H HDL Cholesterol 36 L Lipase Free T3 pg/mL 3.39 Urine Color Urine Appearance Urine pH Ur Specific [place] Urine Protein Urine Glucose (UA) Urine Ketones Urine Blood Urine Nitrite Ur Leukocyte Esterase Urine WBC (Auto) Urine RBC (Auto) 02/09/19 02/09/19 02/09/19 19:10 19:10 23:30 Creatine Kinase 111 CK-MB (CK-2) 0.87 Troponin I < 0.012 < 0.012 02/09/19 02/09/19 02/10/19 23:30 23:30 05:49 Creatine Kinase 111 96 CK-MB (CK-2) 0.79 Troponin I Cancelled 02/10/19 02/10/19 02/10/19 05:49 12:16 12:16 Creatine Kinase 110 CK-MB (CK-2) 0.93 1.07 Troponin I < 0.012 < 0.012 Impressions: Chest X-Ray 02/09/19 19:13 IMPRESSION: Minimal left basilar subsegmental atelectasis. No consolidation or pleural effusion. Qualifiers - * PATIENT BEING DISCHARGED WITH ANY OF THE FOLLOWING DIAGNOSIS: No Acute Heart Failure - Is this a Heart Failure Patient?: No
--- NOTE | 2019-02-12 01:19 | DRAGON STRESS TEST REPORT ---
Intravenous Lexiscan Cardiolite stress test using single photon emmision computerized tomography. Date of procedure: 02/10/2019. Ordering Provider: Dr. Cody Machado. Patient's status: In Patient. Indication: Chest pain. Coronary risk factors: Age, diabetes mellitus, hypertension, dyslipidemia, and family history of coronary artery disease. Resting EKG: Sinus Bradycardia. Within Normal Limits. Stress EKG: No changes of ischemia. The patient had no chest pain or discomfort, and there were no arrhythmias seen. Reason for termination: Protocol. Conclusions: Normal EKG and hemodynamic response to IV Lexiscan. Nuclear data: At rest the patient was given 15.8 millicuries of technetium 99m sestamibi injected intravenously. As per protocol rest non gated SPECT images were obtained. Subsequently the patient was given intravenous Lexiscan at a dose of 0.4 mg in 5 mL intravenously, followed by flush with normal saline. Subsequently the stress dose of 47.7 millicuries of technetium 99m sestamibi was injected intravenously. As per protocol stress gated images were obtained. Nuclear interpretation: Review of images showed that there is motion artifact. Difficult study to interpret. In spite of this all segments of the myocardium had normal perfusion at rest, and normal perfusion post stress with IV Lexiscan. All segments of the myocardium had normal motion, contraction, and thickening by gated study. T. I D. ratio was normal at 1.15. There is no transient ischemic dilatation of the left ventricle. Computer read rest, and stress left ventricular ejection fraction were 50 %, and 51 %, respectively. Visually both the stress and rest ejection fractions were normal, and greater than 55%. Conclusion: 1. There is no scintigraphic evidence of Lexiscan induced myocardial ischemia. 2. There is no scintigraphic evidence of myocardial infarction/scar. Recommendations: Aggressive risk factor modification, and treating the underlying co- morbidities. MTDD
== END 2019-02-10 16:55 | disposition home or self-care (01) ==
LOC: ER 18:35 → EH 02-10 02:21 → 4S 02-10 03:34
PROVIDERS: ADMIT Emergency Medicine; ATTEND Emergency Medicine
DX: R07.89 Other chest pain (principal); G47.30 Sleep apnea, unspecified; I10 Essential (primary) hypertension; E78.5 Hyperlipidemia, unspecified; E11.9 Type 2 diabetes mellitus without complications; E66.9 Obesity, unspecified; Z87.891 Personal history of nicotine dependence; Z82.49 Family history of ischemic heart disease and other diseases of the circulatory system
CPT/HCPCS: 93005; 99285; 36415 ×2; 82553 ×2; 82962; 82550 ×2; 83690; 85025; 80053; 81001; 84484 ×2; 84481; 83036; 80061; 93017; 71046; 78452; 93010; 94660; A9500; J2785; A9270 ×2; J1644; J3490 ×2; Q9969; G0378; J1815

== ENCOUNTER → 2019-10-31 | Outpatient (CLI) | payer MEDICARE, OTHER ==
--- NOTE | 2019-10-31 14:21 | RADIOLOGY REPORT (SQ) ---
EXAM DESCRIPTION: TIBIA FIBULA RIGHT IMAGES COMPLETED DATE/TIME: 10/31/2019 2:14 pm REASON FOR STUDY: D76.3 OTHER HISTIOCYTOSIS SYNDROMES D76.3 OTHER HISTIOCYTOSIS SYNDROMES COMPARISON: None. NUMBER OF VIEWS: Two views. TECHNIQUE: Two radiographic images acquired of the right tibia and fibula to include the knee and an kle in at least one projection. LIMITATIONS: None. FINDINGS: MINERALIZATION: Normal. BONES: No acute fracture or dislocation. No worrisome bone lesions. No significant osteophytes. SOFT TISSUES: No obvious swelling or foreign body. OTHER: No other significant finding. IMPRESSION: NEGATIVE STUDY OF THE RIGHT TIBIA AND FIBULA. NO EXPLANATION FOR PAIN. TECHNICAL DOCUMENTATION: JOB ID: [id number] 2010 [employer]- All Rights Reserved Reading location - IP/workstation name: [email or web address]
== END ==
LOC: RAD 14:02
PROVIDERS: ATTEND Internal Medicine Hematology & Oncology
DX: D76.3 Other histiocytosis syndromes (principal)